=== PATIENT | female | born 1945 | race Hispanic/Latino ===

== ENCOUNTER 2018-08-03 23:00 | Emergency (ER) | payer MEDICARE ==
[2018-08-03] MEDS ORDERED: DIAZEPAM 2 MG TAB ONE (23:29)
== END 2018-08-04 01:17 | disposition home or self-care (01) ==
LOC: EDH 23:00
DX: I10 Essential (primary) hypertension (principal); F41.1 Generalized anxiety disorder; F43.0 Acute stress reaction; E11.9 Type 2 diabetes mellitus without complications; Z90.710 Acquired absence of both cervix and uterus; Z98.890 Other specified postprocedural states
CPT/HCPCS: 93005

== ENCOUNTER → 2018-12-25 | Outpatient (CLI) | payer MEDICARE ==
[~2018-12-25] MED LIST: BIMA12.5OS OU; BRIM5DRO OU; CHOL500050 PO; GLIM4TAB3 PO; LISI10TA7 PO; METO25TA6 PO; NEOM7.5D3 OU; POLY30DR OU
== END | disposition home or self-care (01) ==
LOC: RAH 09:55
PROVIDERS: ATTEND Family Medicine
DX: R92.2 Inconclusive mammogram (principal); E11.42 Type 2 diabetes mellitus with diabetic polyneuropathy; E78.2 Mixed hyperlipidemia; I10 Essential (primary) hypertension; M17.12 Unilateral primary osteoarthritis, left knee; M25.572 Pain in left ankle and joints of left foot; Z85.3 Personal history of malignant neoplasm of breast
CPT/HCPCS: 77066

== ENCOUNTER 2019-11-23 18:56 | Emergency (ER) | payer MEDICARE ==
[~2019-11-23 18:56] MED LIST changes: -GLIM4TAB3 PO; +GLIM4TAB36 PO
[2019-11-23] MEDS ORDERED: ASPIRIN 325 MG TABLET ONE (19:20)
[2019-11-23] MEDS ORDERED: LABETALOL 20 MG/4 ML DISP.SYRIN IV ONE (19:20)
[2019-11-23] MEDS ORDERED: LORAZEPAM 2 MG/ML 1 ML VIAL ONE (19:21)
[2019-11-23 19:26] LABS: BASOPHILS % (AUTO) 0.5 % (0.0-5.0); EOSINOPHILS % (AUTO) 2.6 % (0.0-8.0); HEMATOCRIT 45.4 % (36-48); LYMPHOCYTES % (AUTO) 37.1 % (21.0-51.0); MEAN CORPUSCULAR HGB CONC 33.3 g/dL (32.0-36.0); MEAN CORPUSCULAR VOLUME 87.1 fL (79-99); MONOCYTES % (AUTO) 8.2 % (3.0-13.0); NEUTROPHILS % (AUTO) 51.3 % (40.0-77.0); PLATELET COUNT (AUTO) 251 K/uL (130-400); RED BLOOD CELL COUNT(AUTO) 5.21 MIL/uL (4.00-5.50); RED CELL DISTRIBUTION WIDTH 12.6 % (11.0-15.5)
[2019-11-23 19:53] LABS: INR 0.89 (0.85-1.15); PARTIAL THROMBOPLASTIN TIME 24.5 SEC (26.3-35.5); PROTHROMBIN TIME 9.7 SEC (9.6-11.6)
[2019-11-23 19:56] LABS: CREATININE 1.1 mg/dL (0.5-1.5); POTASSIUM 3.9 mmol/L (3.5-5.1)
[2019-11-23 20:00] LABS: ALBUMIN 3.8 g/dL (3.5-5.0); BILIRUBIN,TOTAL 0.3 mg/dL (0.2-1.0); TOTAL PROTEIN, SERUM 7.9 g/dL (6.0-8.3)
== END 2019-11-23 20:31 | disposition home or self-care (01) ==
LOC: EDH 18:56
DX: R07.89 Other chest pain (principal); I10 Essential (primary) hypertension; E11.9 Type 2 diabetes mellitus without complications
CPT/HCPCS: 36415; 71045; 80053; 82550; 84484; 85025; 85610; 85730; 93005; 96374; 96375; 99285; J2060

== ENCOUNTER 2020-07-03 16:30 | Inpatient (IN) | payer MEDICARE ==
[~2020-07-03] VITALS: Ht 162.6 cm; Wt 93.5 kg
[~2020-07-03 16:30] MED LIST changes: +ALBUMIN (HUMAN) 25% 50 ML IV ONE; +AMINOCAPROIC ACID 5,000MG VIAL IV ONE; +CACL 1GM SYG IVP ONE; +HEPARIN 10,000 UNIT/10ML (1,000 UNIT/ML) VIAL IV ONE; +LISI10TA24 PO; -LISI10TA7 PO; +MAGNESIUM SULFATE 1 GM/2 ML VIAL IM ONE; +MANNITOL 25% 50ML VIAL IV ONE; +PHENYLEPHRINE HCL 10 MG/ML 1ML VIAL IV ONE; +SODIUM BICARB 8.4% 50ML SYRINGE IVP ONE
[2020-07-03] MEDS ORDERED: FAMOTIDINE 20MG VIAL IV ONE (17:05)
[2020-07-03] MEDS ORDERED: MAGNESIUM HYDROXIDE 30 ML/UDCUP ONE (17:06)
[2020-07-03] MEDS ORDERED: LIDOCAINE HCL 2% VISCOUS 15 ML UDCUP ONE (17:06)
[2020-07-03 17:28] LABS: BASOPHILS % (AUTO) 0.4 % (0.0-5.0); EOSINOPHILS % (AUTO) 0.4 % (0.0-8.0); LYMPHOCYTES % (AUTO) 8.5 % (21.0-51.0); MEAN CORPUSCULAR HEMOGLOBIN 29.3 pg (27.0-33.0); MEAN CORPUSCULAR HGB CONC 33.9 g/dL (32.0-36.0); MEAN CORPUSCULAR VOLUME 86.3 fL (79-99); MONOCYTES % (AUTO) 7.2 % (3.0-13.0); NEUTROPHILS % (AUTO) 83.3 % (40.0-77.0); PLATELET COUNT (AUTO) 248 K/uL (130-400); RED BLOOD CELL COUNT(AUTO) 5.33 MIL/uL (4.00-5.50); RED CELL DISTRIBUTION WIDTH 12.3 % (11.0-15.5); WHITE BLOOD COUNT (AUTO) 11.3 K/uL (4.8-10.8)
[2020-07-03 17:37] LABS: CREATININE 1.1 mg/dL (0.5-1.5)
[2020-07-03 17:43] LABS: ALBUMIN 3.8 g/dL (3.5-5.0); BILIRUBIN,TOTAL 0.5 mg/dL (0.2-1.0); TOTAL PROTEIN, SERUM 7.8 g/dL (6.0-8.3)
[2020-07-03 17:43] LABS: APPEARANCE,URINE Clear (CLEAR); BILIRUBIN,URINE Negative (NEGATIVE); COLOR,URINE Yellow (YELLOW); GLUCOSE, URINE (UA) 500 mg/dL (NEGATIVE); KETONES,URINE 15 mg/dL (NEGATIVE); LEUKOCYTE ESTERASE ,URINE Negative (NEGATIVE); NITRATE,URINE Negative (NEGATIVE); OCCULT BLOOD,URINE Small (NEGATIVE); PROTEIN,URINE Negative (NEGATIVE)
[2020-07-03 18:53] LABS: BACTERIA,URINE Rare /HPF (None Seen); SQUAMOUS EPITHELIAL CELL,UR Few /HPF (0-2); WBC,URINE 0-1 /HPF (0-1)
[2020-07-03] MEDS: 0.9%NACL 1000ML 1,000 ML IV SCH (19:45)
[2020-07-03] MEDS ORDERED: MORPHINE 2 MG SYG IVP PRN (19:45)
[2020-07-03] MEDS ORDERED: ACETAMINOPHEN 325 MG TAB PO PRN ×2 (19:45)
[2020-07-03] MEDS: NITROGLYCERIN 1GM OINT 1 INCH/1GM TD SCH (19:45)
[2020-07-03] MEDS ORDERED: ONDANSETRON 4MG INJ IV PRN (19:45)
[2020-07-03] MEDS ORDERED: ASPIRIN 325 MG TABLET ONE (19:46)
[2020-07-03] MEDS ORDERED: GLUCAGON 1MG KIT 1 MG ML IM PRN (20:00)
[2020-07-03] MEDS ORDERED: DEXTROSE 50%-WATER 50 ML DISP.SYRIN IV PRN (20:00)
[2020-07-03] MEDS ORDERED: NITROGLYCERIN 1GM OINT 1 INCH/1GM TD ONE (20:44)
[2020-07-03] MEDS ORDERED: 0.9%NACL 1000ML 1,000 ML IV ONE (20:45)
[2020-07-03] MEDS: INSULIN HUMULIN R 100 UNIT/ML 3ML SQ SCH (21:00)
[2020-07-03] MEDS ORDERED: FAMOTIDINE 20MG VIAL IV SCH (21:00)
[2020-07-03] MEDS ORDERED: ATORVASTATIN 40 MG TABLET ONE (21:15)
[2020-07-03] MEDS ORDERED: METOPROLOL SUCCINATE 50 MG TAB.SR.24H PO ONE (21:15)
[2020-07-03] MEDS: AZITHROMYCIN 500MG+NS 250ML 250 ML IV SCH (23:00)
[2020-07-03] MEDS: CEFTRIAXONE 1G VIAL IVP SCH (23:00)
[2020-07-03] MEDS ORDERED: CARB-242 OU (23:18)
[2020-07-03] MEDS ORDERED: OLME20TA22 PO (23:18)
[2020-07-03] MEDS ORDERED: AMLO2.5T4 PO (23:18)
[2020-07-03] MEDS ORDERED: GLIP1TAB6 PO (23:18)
[2020-07-03] MEDS ORDERED: ERGO500093 PO (23:18)
[2020-07-04] VITALS (21 sets, daily range): BP systolic 102–158; BP diastolic 35–69
[2020-07-04] MEDS ORDERED: CEFTRIAXONE 1G VIAL ONE (01:12)
[2020-07-04] MEDS ORDERED: AZITHROMYCIN 500MG+NS 250ML 250 ML IV ONE (01:12)
[2020-07-04] MEDS: NITROGLYCERIN 1GM OINT 1 INCH/1GM TD SCH ×2 (03:45→11:45)
[2020-07-04 05:52] LABS: BASOPHILS % (AUTO) 0.5 % (0.0-5.0); EOSINOPHILS % (AUTO) 0.3 % (0.0-8.0); HEMATOCRIT 44.1 % (36-48); LYMPHOCYTES % (AUTO) 13.1 % (21.0-51.0); MEAN CORPUSCULAR HEMOGLOBIN 28.5 pg (27.0-33.0); MEAN CORPUSCULAR HGB CONC 33.6 g/dL (32.0-36.0); MONOCYTES % (AUTO) 9.8 % (3.0-13.0); PLATELET COUNT (AUTO) 239 K/uL (130-400); RED BLOOD CELL COUNT(AUTO) 5.19 MIL/uL (4.00-5.50); RED CELL DISTRIBUTION WIDTH 12.4 % (11.0-15.5); WHITE BLOOD COUNT (AUTO) 9.9 K/uL (4.8-10.8)
[2020-07-04 07:04] LABS: TROPONIN I 2.9 ng/mL (0.00-0.06)
[2020-07-04 07:29] LABS: BILIRUBIN,TOTAL 0.8 mg/dL (0.2-1.0); CREATININE 0.9 mg/dL (0.5-1.5); THYROID STIMULATING HORMONE 1.48 uIU/mL (0.36-3.74); TOTAL PROTEIN, SERUM 6.7 g/dL (6.0-8.3)
[2020-07-04] MEDS: INSULIN HUMULIN R 100 UNIT/ML 3ML SQ SCH ×2 (07:30→11:30)
[2020-07-04] MEDS ORDERED: CLOPIDOGREL 300MG TAB ONE (08:58)
[2020-07-04] MEDS ORDERED: ENOXAPARIN SODIUM 80 MG/0.8 ML SQ SCH (09:00)
[2020-07-04] MEDS ORDERED: ASPIRIN 81 MG EC TAB PO SCH ×2 (09:00)
[2020-07-04] MEDS ORDERED: METOPROLOL TARTRATE 25 MG TAB PO SCH (09:00)
[2020-07-04] MEDS ORDERED: ENOXAPARIN SODIUM 30 MG/0.3 ML SQ SCH (09:00)
[2020-07-04] MEDS: 0.9%NACL 1000ML 1,000 ML IV SCH (09:05)
[2020-07-04] MEDS ORDERED: CLOPIDOGREL 300MG TAB PO SCH (09:15)
[2020-07-04] MEDS ORDERED: NICARDIPINE 25MG INJ IV ONE (09:45)
[2020-07-04] MEDS ORDERED: IOHEXOL 350 MG/ML 100ML INFUS..BTL IV ONE (09:45)
[2020-07-04] MEDS ORDERED: HEPARIN 10,000 UNIT/10ML (1,000 UNIT/ML) VIAL ONE ×3 (09:45→13:11)
[2020-07-04] MEDS ORDERED: IOHEXOL-350 50ML VIAL IV ONE (09:45)
[2020-07-04] MEDS ORDERED: NITROGLYCERIN 2 MG VIAL IV ONE (09:45)
[2020-07-04] MEDS ORDERED: LIDOCAINE HCL 400MG/20ML VIAL ONE ×3 (09:46→11:26)
[2020-07-04] MEDS ORDERED: MIDAZOLAM HCL 1 MG/ML 2ML VIAL ONE (09:46)
[2020-07-04] MEDS ORDERED: FENTANYL CITRATE PF 50 MCG/1 ML 2ML VIAL ONE (09:46)
[2020-07-04] MEDS ORDERED: HEPARIN 25,000 UNITS/250ML D5W 250 ML IV ONE (10:51)
[2020-07-04] MEDS: CEFTRIAXONE 1G VIAL IVP SCH ×2 (11:00→22:28)
[2020-07-04] MEDS ORDERED: ESMOLOL HCL 10 MG/ML 10 ML VIAL ONE ×2 (11:38→11:40)
[2020-07-04] MEDS ORDERED: PROTAMINE SULFATE 10 MG/ML 25ML VIAL IV ONE (11:38)
[2020-07-04] MEDS ORDERED: LIDOCAINE PF 100MG/5ML (2%) SYRINGE 5ML ONE (11:38)
[2020-07-04] MEDS ORDERED: FENTANYL CITRATE PF 50 MCG/1 ML 20ML VIAL IJ ONE (11:39)
[2020-07-04] MEDS ORDERED: SODIUM BICARB 50MEQ 50ML VIAL 150 ML ONE ×2 (11:39→13:17)
[2020-07-04] MEDS ORDERED: ETOMIDATE 20MG VIAL ONE (11:39)
[2020-07-04] MEDS ORDERED: NOREPINEPHRINE BITARTRATE 1 MG/1 ML ML IV ONE (11:39)
[2020-07-04] MEDS ORDERED: ROCURONIUM 10MG/1ML SYR 10 MG/ML ML ONE ×2 (11:39→14:11)
[2020-07-04] MEDS ORDERED: PROPOFOL 10 MG/ML 20ML VIAL IV ONE (11:39)
[2020-07-04] MEDS ORDERED: AMINOCAPROIC ACID 5,000MG VIAL ONE (11:39)
[2020-07-04] MEDS ORDERED: EPINEPHRINE PF 1MG AMP ONE (11:39)
[2020-07-04] MEDS ORDERED: AMIODARONE 150MG VIAL ONE ×2 (11:40→14:55)
[2020-07-04] MEDS ORDERED: VASOPRESSIN 20 UNITS/ML 1ML VIAL ONE (11:41)
[2020-07-04] MEDS ORDERED: CEFAZOLIN SODIUM 1 GM VIAL ONE ×2 (11:42→12:54)
[2020-07-04] MEDS ORDERED: PAPAVERINE HCL 30 MG/ML 2ML VIAL ONE (11:43)
[2020-07-04] MEDS ORDERED: CEFAZOLIN SODIUM 1 GM VIAL IVP PRN ×2 (11:45→12:00)
[2020-07-04] MEDS ORDERED: NITROGLYCERIN 50MG/D5W 250ML 1 BOT ONE (12:17)
[2020-07-04 12:36] LABS: MEAN CORPUSCULAR HEMOGLOBIN 29.1 pg (27.0-33.0); MEAN CORPUSCULAR HGB CONC 33.9 g/dL (32.0-36.0); MEAN CORPUSCULAR VOLUME 85.8 fL (79-99); RED BLOOD CELL COUNT(AUTO) 4.78 MIL/uL (4.00-5.50); RED CELL DISTRIBUTION WIDTH 12.5 % (11.0-15.5); WHITE BLOOD COUNT (AUTO) 13.1 K/uL (4.8-10.8)
[2020-07-04] MEDS ORDERED: SUCCINYLCHOLINE CHLORIDE 20 MG/ML 10 ML VIAL ONE (12:37)
[2020-07-04 12:52] LABS: INR 1.11 (0.85-1.15); PROTHROMBIN TIME 11.8 SEC (9.6-11.6)
[2020-07-04 12:57] LABS: HEMOGLOBIN A1C 7.1 % (4.0-6.0)
[2020-07-04 12:59] LABS: ALBUMIN 2.7 g/dL (3.5-5.0); BILIRUBIN,TOTAL 0.7 mg/dL (0.2-1.0); CREATININE 0.8 mg/dL (0.5-1.5); POTASSIUM 3.9 mmol/L (3.5-5.1)
[2020-07-04 13:04] LABS: ABG BASE EXCESS -7.6 mmol/L (-2.0-3.0); ABG HCO3 17.1 mmol/L (21.0-28.0); ABG OXYGEN SATURATION 98.9 % (95.0-99.0); ABG PCO2 33 mmHg (32-45)
[2020-07-04 13:09] LABS: PARTIAL THROMBOPLASTIN TIME > 139.0 SEC (26.3-35.5)
[2020-07-04] MEDS ORDERED: POTASSIUM CHLORIDE 20MEQ/100ML 200 ML IV ONE (13:11)
[2020-07-04 13:25] LABS: ABG BASE EXCESS 2.5 mmol/L (-2.0-3.0); ABG HCO3 25.7 mmol/L (21.0-28.0); ABG OXYGEN SATURATION 98.6 % (95.0-99.0); ABG PCO2 35 mmHg (32-45)
[2020-07-04] MEDS ORDERED: LIDOCAINE 2G/250ML 250 ML IV ONE (13:53)
[2020-07-04 14:01] LABS: ABG BASE EXCESS -2.4 mmol/L (-2.0-3.0); ABG HCO3 20.5 mmol/L (21.0-28.0); ABG OXYGEN SATURATION 98.2 % (95.0-99.0); ABG PCO2 27 mmHg (32-45)
[2020-07-04 14:22] LABS: ABG BASE EXCESS 0.4 mmol/L (-2.0-3.0); ABG HCO3 23.5 mmol/L (21.0-28.0); ABG OXYGEN SATURATION 98.2 % (95.0-99.0); ABG PCO2 31 mmHg (32-45)
[2020-07-04] MEDS ORDERED: INSULIN HUMULIN R 100 UNIT/ML 3ML ONE (14:26)
[2020-07-04] MEDS ORDERED: 0.9%NACL 1000ML 1,000 ML IV ONE (14:52)
[2020-07-04 15:03] LABS: ABG HCO3 20.7 mmol/L (21.0-28.0); ABG OXYGEN SATURATION 98.3 % (95.0-99.0); ABG PCO2 32 mmHg (32-45)
[2020-07-04] MEDS ORDERED: PROPOFOL 1000 MG/100 ML 100 ML IV PRN (15:30)
[2020-07-04] MEDS ORDERED: TRAMADOL HCL 50 MG TABLET PO PRN ×2 (15:30)
[2020-07-04] MEDS ORDERED: MAGNESIUM 2GM PREMIX 50ML 50 ML IV PRN (15:30)
[2020-07-04] MEDS ORDERED: 0.9%NACL 1000ML 1,000 ML IV SCH (15:30)
[2020-07-04] MEDS ORDERED: MORPHINE 2 MG SYG IV PRN ×2 (15:30→15:45)
[2020-07-04] MEDS ORDERED: EPINEPHRINE PF 1MG AMP 10 MG in DEXTROSE 5%-WATER 250 ML IV PRN (15:30)
[2020-07-04] MEDS ORDERED: POTASSIUM PHOS 15 mMOL+NS250ML 250 ML IV PRN (15:30)
[2020-07-04] MEDS ORDERED: AMINOCAPROIC ACID 5,000MG VIAL 15,000 MG in 0.9% NACL 250ML 250 ML IV SCH (15:30)
[2020-07-04] MEDS ORDERED: DEXTROSE 50%-WATER 50 ML DISP.SYRIN IV PRN (15:30)
[2020-07-04] MEDS ORDERED: ALBUMIN (HUMAN) 5% 250 ML IV PRN (15:30)
[2020-07-04] MEDS ORDERED: ONDANSETRON 4MG INJ IV PRN (15:30)
[2020-07-04] MEDS ORDERED: NOREPINEPHRIN 4MG/NS 250ML 250 ML IV PRN (15:30)
[2020-07-04] MEDS ORDERED: NITROGLYCERIN 50MG/D5W 250ML 250 BOT IV SCH (15:30)
[2020-07-04] MEDS ORDERED: 0.9% NACL 500ML IV.SOLN 500 ML IV SCH (15:30)
[2020-07-04] MEDS ORDERED: ACETAMINOPHEN 650 MG SUPPOSITORY RC PRN (15:30)
[2020-07-04] MEDS ORDERED: INSULIN REGULAR, HUMAN 3ML 100 UNIT in 0.9%NACL 100ML 99 ML IV SCH ×2 (15:30)
[2020-07-04] MEDS ORDERED: GLUCAGON 1MG KIT 1 MG ML IM PRN (15:30)
[2020-07-04 15:32] LABS: ABG BASE EXCESS -1.1 mmol/L (-2.0-3.0); ABG HCO3 22.9 mmol/L (21.0-28.0); ABG OXYGEN SATURATION 98.3 % (95.0-99.0); ABG PCO2 35 mmHg (32-45)
[2020-07-04] MEDS ORDERED: POTASSIUM CHLORIDE 20MEQ/100ML 100 ML IV ONE (15:36)
[2020-07-04 16:55] LABS: ABG HCO3 21.7 mmol/L (21.0-28.0); ABG OXYGEN SATURATION 96.5 % (95.0-99.0); ABG PCO2 30 mmHg (32-45)
[2020-07-04] MEDS: POTASSIUM CHLORIDE 20MEQ/100ML 100 ML IV PRN ×3 (16:58→21:29)
[2020-07-04] MEDS: SODIUM BICARB 50MEQ 50ML VIAL IV PRN ×4 (16:58→23:54)
[2020-07-04 17:01] LABS: HEMATOCRIT 30.2 % (36-48); MEAN CORPUSCULAR HEMOGLOBIN 29.1 pg (27.0-33.0); MEAN CORPUSCULAR HGB CONC 33.8 g/dL (32.0-36.0); MEAN CORPUSCULAR VOLUME 86.3 fL (79-99); RED BLOOD CELL COUNT(AUTO) 3.5 MIL/uL (4.00-5.50); WHITE BLOOD COUNT (AUTO) 15.9 K/uL (4.8-10.8)
[2020-07-04 17:23] LABS: INR 1.42 (0.85-1.15); PROTHROMBIN TIME 14.7 SEC (9.6-11.6)
[2020-07-04 17:24] LABS: CREATININE 1.2 mg/dL (0.5-1.5); MAGNESIUM 2.2 mg/dL (1.80-2.40); PHOSPHORUS 2.3 mg/dL (2.5-4.9); POTASSIUM 3.1 mmol/L (3.5-5.1)
[2020-07-04 17:25] LABS: PARTIAL THROMBOPLASTIN TIME 28.8 SEC (26.3-35.5)
[2020-07-04 18:31] LABS: ABG BASE EXCESS 0.1 mmol/L (-2.0-3.0); ABG HCO3 20.9 mmol/L (21.0-28.0); ABG OXYGEN SATURATION 98.2 % (95.0-99.0); ABG PCO2 23 mmHg (32-45)
[2020-07-04] MEDS ORDERED: DEXTROSE 5%-WATER 1,000 ML IV ONE (19:22)
[2020-07-04] MEDS ORDERED: PHARMACY COMMUNICATION MISC SCH ×2 (19:30→20:15)
[2020-07-04] MEDS ORDERED: LIDOCAINE 2G/250ML 250 ML IV SCH (19:45)
[2020-07-04] MEDS: FAMOTIDINE 20MG VIAL IV SCH (19:57)
[2020-07-04] MEDS: CEFAZOLIN SODIUM 1 GM VIAL IV SCH (19:57)
[2020-07-04] MEDS: ATORVASTATIN 40 MG TABLET PO SCH (19:58)
[2020-07-04 20:34] LABS: ABG BASE EXCESS 0.8 mmol/L (-2.0-3.0); ABG HCO3 23.1 mmol/L (21.0-28.0); ABG OXYGEN SATURATION 97.4 % (95.0-99.0); ABG PCO2 30 mmHg (32-45)
[2020-07-04 22:04] LABS: ABG BASE EXCESS -0.4 mmol/L (-2.0-3.0); ABG OXYGEN SATURATION 96.7 % (95.0-99.0); ABG PCO2 33 mmHg (32-45)
[2020-07-04] MEDS: AZITHROMYCIN 500MG+NS 250ML 250 ML IV SCH (23:23)
[2020-07-04 23:38] LABS: ABG BASE EXCESS -4.6 mmol/L (-2.0-3.0); ABG HCO3 18.2 mmol/L (21.0-28.0); ABG OXYGEN SATURATION 96.5 % (95.0-99.0); ABG PCO2 26 mmHg (32-45)
[2020-07-05] VITALS (101 sets, daily range): BP systolic 108–217; BP diastolic 45–89
[2020-07-05 01:14] LABS: ABG BASE EXCESS 5.1 mmol/L (-2.0-3.0); ABG PCO2 34 mmHg (32-45)
[2020-07-05] MEDS: POTASSIUM CHLORIDE 20MEQ/100ML 100 ML IV PRN ×2 (01:26→02:39)
[2020-07-05 03:25] LABS: ABG BASE EXCESS -1.4 mmol/L (-2.0-3.0); ABG HCO3 20.7 mmol/L (21.0-28.0); ABG OXYGEN SATURATION 96.3 % (95.0-99.0); ABG PCO2 26 mmHg (32-45)
[2020-07-05] MEDS: SODIUM BICARB 50MEQ 50ML VIAL IV PRN ×2 (03:33→03:36)
[2020-07-05] MEDS: CEFAZOLIN SODIUM 1 GM VIAL IV SCH ×2 (04:07→12:30)
[2020-07-05 05:03] LABS: HEMATOCRIT 25.7 % (36-48); INR 1.29 (0.85-1.15); MEAN CORPUSCULAR HGB CONC 34.2 g/dL (32.0-36.0); MEAN CORPUSCULAR VOLUME 84.8 fL (79-99); PROTHROMBIN TIME 13.5 SEC (9.6-11.6); RED BLOOD CELL COUNT(AUTO) 3.03 MIL/uL (4.00-5.50); RED CELL DISTRIBUTION WIDTH 13.2 % (11.0-15.5); WHITE BLOOD COUNT (AUTO) 12.6 K/uL (4.8-10.8)
[2020-07-05 05:04] LABS: PARTIAL THROMBOPLASTIN TIME 33.2 SEC (26.3-35.5)
[2020-07-05 05:16] LABS: ABG BASE EXCESS 7.6 mmol/L (-2.0-3.0); ABG HCO3 30.8 mmol/L (21.0-28.0); ABG OXYGEN SATURATION 95.8 % (95.0-99.0); ABG PCO2 38 mmHg (32-45)
[2020-07-05] MEDS: CALCIUM GLUC 1GM 1 GM in 0.9%NACL 50ML 50 ML IV PRN ×2 (05:20→18:33)
[2020-07-05 05:33] LABS: MAGNESIUM 2.2 mg/dL (1.80-2.40); PHOSPHORUS 2.3 mg/dL (2.5-4.9); POTASSIUM 4.6 mmol/L (3.5-5.1)
[2020-07-05] MEDS ORDERED: ALBUMIN (HUMAN) 5% 250 ML IV ONE ×2 (06:42)
[2020-07-05] MEDS ORDERED: ALBUMIN (HUMAN) 5% 500 ML IV SCH (06:45)
[2020-07-05] MEDS ORDERED: DEXTROSE 5%-WATER 1,000 ML IV ONE (07:24)
[2020-07-05] MEDS: DEXTROSE 5%-WATER 1,000 ML IV SCH ×2 (08:06→19:24)
[2020-07-05 08:10] LABS: ABG BASE EXCESS 6.3 mmol/L (-2.0-3.0); ABG HCO3 30.1 mmol/L (21.0-28.0); ABG OXYGEN SATURATION 94.2 % (95.0-99.0); ABG PCO2 40 mmHg (32-45)
[2020-07-05] MEDS: FUROSEMIDE 20MG VIAL IV SCH ×2 (09:00→20:35)
[2020-07-05] MEDS: ASPIRIN 325MG EC TAB PO SCH (09:00)
[2020-07-05] MEDS ORDERED: LORAZEPAM 2 MG/ML 1 ML VIAL IVP PRN (09:30)
[2020-07-05 09:53] LABS: ABG BASE EXCESS 5.5 mmol/L (-2.0-3.0); ABG HCO3 29.4 mmol/L (21.0-28.0); ABG OXYGEN SATURATION 95.8 % (95.0-99.0); ABG PCO2 40 mmHg (32-45)
[2020-07-05] MEDS ORDERED: PHARMACY COMMUNICATION MISC SCH ×2 (10:00→15:00)
[2020-07-05] MEDS: CEFTRIAXONE 1G VIAL IVP SCH ×2 (10:18→23:03)
[2020-07-05] MEDS: FAMOTIDINE 20MG VIAL IV SCH ×2 (10:18→20:39)
[2020-07-05 10:52] LABS: HEMATOCRIT 24.5 % (36-48); MEAN CORPUSCULAR HEMOGLOBIN 29.4 pg (27.0-33.0); MEAN CORPUSCULAR HGB CONC 34.3 g/dL (32.0-36.0); MEAN CORPUSCULAR VOLUME 85.7 fL (79-99); NUCLEATED RED BLOOD CELLS 0.1 % (0.0-0.19); RED BLOOD CELL COUNT(AUTO) 2.86 MIL/uL (4.00-5.50); RED CELL DISTRIBUTION WIDTH 13.8 % (11.0-15.5); WHITE BLOOD COUNT (AUTO) 14.5 K/uL (4.8-10.8)
[2020-07-05 11:10] LABS: CREATININE 2.2 mg/dL (0.5-1.5); POTASSIUM 3.8 mmol/L (3.5-5.1)
[2020-07-05] MEDS ORDERED: COMPOUND IV MISC 1 EACH IVSOLN MISC PRN (12:15)
[2020-07-05] MEDS: LEVETIRACETAM 500 MG in 0.9%NACL 100ML 100 ML IV SCH (12:39)
[2020-07-05] MEDS: FUROSEMIDE IVP SCH (16:10)
[2020-07-05] MEDS: MANNITOL 20% IVP SCH (16:10)
[2020-07-05 18:30] LABS: ABG BASE EXCESS 7.4 mmol/L (-2.0-3.0); ABG HCO3 30.8 mmol/L (21.0-28.0); ABG OXYGEN SATURATION 95.1 % (95.0-99.0); ABG PCO2 38 mmHg (32-45)
[2020-07-05] MEDS: ATORVASTATIN 40 MG TABLET PO SCH (20:39)
[2020-07-05] MEDS: AZITHROMYCIN 500MG+NS 250ML 250 ML IV SCH (23:03)
[2020-07-05] MEDS: NOREPINEPHRINE BITARTRATE 8 MG/NS 250ML IV SCH ×2 (23:37)
[2020-07-06] VITALS (61 sets, daily range): BP systolic 106–189; BP diastolic 38–94
[2020-07-06] MEDS: LEVETIRACETAM 500 MG in 0.9%NACL 100ML 100 ML IV SCH ×2 (01:06→14:13)
[2020-07-06 03:31] LABS: BASOPHILS % (AUTO) 0.2 % (0.0-5.0); HEMATOCRIT 23.6 % (36-48); LYMPHOCYTES % (AUTO) 9.8 % (21.0-51.0); MEAN CORPUSCULAR HGB CONC 33.1 g/dL (32.0-36.0); MEAN CORPUSCULAR VOLUME 87.7 fL (79-99); MONOCYTES % (AUTO) 9.1 % (3.0-13.0); NEUTROPHILS % (AUTO) 80.3 % (40.0-77.0); NUCLEATED RED BLOOD CELLS 0.2 % (0.0-0.19); PLATELET COUNT (AUTO) 92 K/uL (130-400); RED BLOOD CELL COUNT(AUTO) 2.69 MIL/uL (4.00-5.50); RED CELL DISTRIBUTION WIDTH 14.3 % (11.0-15.5); WHITE BLOOD COUNT (AUTO) 17.7 K/uL (4.8-10.8)
[2020-07-06 03:42] LABS: CREATININE 2.4 mg/dL (0.5-1.5); POTASSIUM 3.7 mmol/L (3.5-5.1)
[2020-07-06 04:25] LABS: ABG BASE EXCESS 8.8 mmol/L (-2.0-3.0); ABG HCO3 32.2 mmol/L (21.0-28.0); ABG OXYGEN SATURATION 94.9 % (95.0-99.0); ABG PCO2 40 mmHg (32-45)
[2020-07-06] MEDS: METOPROLOL TARTRATE 25 MG TAB PO SCH ×2 (09:00→21:00)
[2020-07-06] MEDS ORDERED: PHARMACY COMMUNICATION MISC SCH (09:15)
[2020-07-06] MEDS: ASPIRIN 325MG EC TAB PO SCH (09:27)
[2020-07-06] MEDS: FAMOTIDINE 20MG VIAL IV SCH ×2 (09:27→21:01)
[2020-07-06] MEDS ORDERED: FOSPHENYTOIN SODIUM IJ SCH (10:00)
[2020-07-06] MEDS ORDERED: COMPOUND IV MISC 1 EACH IVSOLN MISC PRN (10:00)
[2020-07-06] MEDS ORDERED: [UNRECOGNIZED DRUG - OTHER] IJ SCH (10:00)
[2020-07-06] MEDS: CEFTRIAXONE 1G VIAL IVP SCH ×2 (11:27→23:08)
[2020-07-06 13:57] LABS: CREATININE 2.7 mg/dL (0.5-1.5); POTASSIUM 3.7 mmol/L (3.5-5.1)
[2020-07-06] MEDS ORDERED: DEXAMETHASONE SOD PHOSPHATE 4 MG/ML 1ML VIAL ONE (14:50)
[2020-07-06] MEDS ORDERED: DEXAMETHASONE SOD PHOSPHATE 4 MG/ML 1ML VIAL IVP SCH (15:50)
[2020-07-06] MEDS ORDERED: FUROSEMIDE 20 MG TABLET PO SCH (17:00)
[2020-07-06] MEDS ORDERED: AMIODARONE 150MG VIAL 150 MG in DEXTROSE 5%-WATER 100 ML IV SCH (17:45)
[2020-07-06] MEDS: DEXAMETHASONE SOD PHOSPHATE 4 MG/ML 1ML VIAL IVP SCH (17:50)
[2020-07-06] MEDS: DEXTROSE 5%-WATER 1,000 ML IV SCH (17:50)
[2020-07-06] MEDS ORDERED: AMIODARONE 900MG VIAL 360 MG in DEXTROSE 5%-WATER 200 ML IV SCH (18:00)
[2020-07-06] MEDS: MANNITOL 20% IVP SCH (20:42)
[2020-07-06] MEDS: FUROSEMIDE IVP SCH (20:42)
[2020-07-06] MEDS: ATORVASTATIN 40 MG TABLET PO SCH (21:02)
[2020-07-06] MEDS: FOSPHENYTOIN SODIUM 100 MG in 0.9%NACL 50ML 50 ML IJ SCH (21:44)
[2020-07-06] MEDS: AZITHROMYCIN 500MG+NS 250ML 250 ML IV SCH (23:07)
[2020-07-07] VITALS (29 sets, daily range): BP systolic 116–180; BP diastolic 46–83
[2020-07-07] MEDS ORDERED: AMIODARONE 900MG VIAL 450 MG in DEXTROSE 5%-WATER 250 ML IV SCH ×2
[2020-07-07] MEDS: LEVETIRACETAM 500 MG in 0.9%NACL 100ML 100 ML IV SCH ×2 (00:09→12:12)
[2020-07-07] MEDS: NOREPINEPHRINE BITARTRATE 8 MG/NS 250ML IV SCH ×2 (00:18)
[2020-07-07 03:57] LABS: HEMATOCRIT 22.4 % (36-48); MEAN CORPUSCULAR HEMOGLOBIN 29.4 pg (27.0-33.0); MEAN CORPUSCULAR HGB CONC 32.6 g/dL (32.0-36.0); MEAN CORPUSCULAR VOLUME 90.3 fL (79-99); NUCLEATED RED BLOOD CELLS 0.8 % (0.0-0.19); RED BLOOD CELL COUNT(AUTO) 2.48 MIL/uL (4.00-5.50); RED CELL DISTRIBUTION WIDTH 14.6 % (11.0-15.5); WHITE BLOOD COUNT (AUTO) 17.9 K/uL (4.8-10.8)
[2020-07-07] MEDS: DEXTROSE 5%-WATER 1,000 ML IV SCH (04:16)
[2020-07-07 04:23] LABS: CREATININE 2.9 mg/dL (0.5-1.5); POTASSIUM 4.1 mmol/L (3.5-5.1)
[2020-07-07] MEDS: ACETAMINOPHEN 325 MG TAB PO PRN (04:41)
[2020-07-07] MEDS: DEXAMETHASONE SOD PHOSPHATE 4 MG/ML 1ML VIAL IVP SCH ×5 (06:11→23:18)
[2020-07-07] MEDS: ASPIRIN 325MG EC TAB PO SCH (09:47)
[2020-07-07] MEDS: FAMOTIDINE 20MG VIAL IV SCH ×2 (09:47→23:21)
[2020-07-07] MEDS: METOPROLOL TARTRATE 25 MG TAB PO SCH ×2 (09:47→23:20)
[2020-07-07] MEDS: FOSPHENYTOIN SODIUM 100 MG in 0.9%NACL 50ML 50 ML IJ SCH ×2 (09:48→23:20)
[2020-07-07] MEDS: INSULIN HUMULIN R 100 UNIT/ML 3ML SQ SCH ×2 (09:52→15:27)
[2020-07-07] MEDS: ENOXAPARIN SODIUM 30 MG/0.3 ML SQ SCH (10:18)
[2020-07-07] MEDS: CEFTRIAXONE 1G VIAL IVP SCH ×2 (10:18→23:18)
[2020-07-07] MEDS ORDERED: AMIODARONE 200 MG TABLET PO ONE ×2 (22:15→23:14)
[2020-07-07] MEDS: ATORVASTATIN 40 MG TABLET PO SCH (23:19)
[2020-07-08] VITALS (28 sets, daily range): BP systolic 98–188; BP diastolic 41–128
[2020-07-08] MEDS: LEVETIRACETAM 500 MG in 0.9%NACL 100ML 100 ML IV SCH ×2 (00:18→11:58)
[2020-07-08] MEDS: INSULIN HUMULIN R 100 UNIT/ML 3ML SQ SCH ×5 (00:30→20:00)
[2020-07-08] MEDS: AZITHROMYCIN 500MG+NS 250ML 250 ML IV SCH ×2 (00:30→22:21)
[2020-07-08] MEDS: DEXTROSE 5%-WATER 1,000 ML IV SCH ×2 (01:40→06:40)
[2020-07-08] MEDS: DEXAMETHASONE SOD PHOSPHATE 4 MG/ML 1ML VIAL IVP SCH ×3 (05:57→18:54)
[2020-07-08 06:11] LABS: BASOPHILS % (AUTO) 0.1 % (0.0-5.0); HEMATOCRIT 22.6 % (36-48); LYMPHOCYTES % (AUTO) 2.8 % (21.0-51.0); MEAN CORPUSCULAR HEMOGLOBIN 29.7 pg (27.0-33.0); MEAN CORPUSCULAR HGB CONC 32.7 g/dL (32.0-36.0); MEAN CORPUSCULAR VOLUME 90.8 fL (79-99); MONOCYTES % (AUTO) 3.4 % (3.0-13.0); NEUTROPHILS % (AUTO) 93.2 % (40.0-77.0); NUCLEATED RED BLOOD CELLS 1.2 % (0.0-0.19); PLATELET COUNT (AUTO) 93 K/uL (130-400); RED BLOOD CELL COUNT(AUTO) 2.49 MIL/uL (4.00-5.50); RED CELL DISTRIBUTION WIDTH 14.2 % (11.0-15.5); WHITE BLOOD COUNT (AUTO) 16.5 K/uL (4.8-10.8)
[2020-07-08 06:22] LABS: CREATININE 2.8 mg/dL (0.5-1.5); MAGNESIUM 2.5 mg/dL (1.80-2.40); POTASSIUM 4.2 mmol/L (3.5-5.1)
[2020-07-08] MEDS: INSULIN GLARGINE 100 UNITS/ML 10 ML VIAL SQ SCH (08:49)
[2020-07-08] MEDS: ASPIRIN 325MG EC TAB PO SCH (09:04)
[2020-07-08] MEDS: FAMOTIDINE 20MG VIAL IV SCH ×2 (09:04→21:19)
[2020-07-08] MEDS: AMIODARONE 200 MG TABLET PO SCH (09:04)
[2020-07-08] MEDS: ENOXAPARIN SODIUM 30 MG/0.3 ML SQ SCH (09:04)
[2020-07-08] MEDS: METOPROLOL TARTRATE 25 MG TAB PO SCH ×2 (09:05→21:19)
[2020-07-08] MEDS: CEFTRIAXONE 1G VIAL IVP SCH ×2 (11:58→23:09)
[2020-07-08] MEDS: FOSPHENYTOIN SODIUM 100 MG in 0.9%NACL 50ML 50 ML IJ SCH ×2 (11:59→22:01)
[2020-07-08] MEDS: ATORVASTATIN 40 MG TABLET PO SCH (21:20)
[2020-07-09] VITALS (30 sets, daily range): BP systolic 84–211; BP diastolic 34–107
[2020-07-09] MEDS: DEXTROSE 5%-WATER 1,000 ML IV SCH ×2 (00:06→11:00)
[2020-07-09] MEDS: LEVETIRACETAM 500 MG in 0.9%NACL 100ML 100 ML IV SCH ×2 (00:14→13:12)
[2020-07-09 04:17] LABS: BASOPHILS % (AUTO) 0.1 % (0.0-5.0); HEMATOCRIT 23.7 % (36-48); LYMPHOCYTES % (AUTO) 4.7 % (21.0-51.0); MEAN CORPUSCULAR HEMOGLOBIN 28.7 pg (27.0-33.0); MEAN CORPUSCULAR HGB CONC 31.6 g/dL (32.0-36.0); MEAN CORPUSCULAR VOLUME 90.8 fL (79-99); MONOCYTES % (AUTO) 5.1 % (3.0-13.0); NEUTROPHILS % (AUTO) 89.4 % (40.0-77.0); NUCLEATED RED BLOOD CELLS 0.3 % (0.0-0.19); PLATELET COUNT (AUTO) 88 K/uL (130-400); RED BLOOD CELL COUNT(AUTO) 2.61 MIL/uL (4.00-5.50); WHITE BLOOD COUNT (AUTO) 16.4 K/uL (4.8-10.8)
[2020-07-09 04:20] LABS: CREATININE 2.3 mg/dL (0.5-1.5); MAGNESIUM 2.3 mg/dL (1.80-2.40); POTASSIUM 3.7 mmol/L (3.5-5.1)
[2020-07-09] MEDS: POTASSIUM CHLORIDE 20MEQ/100ML 100 ML IV PRN (05:25)
[2020-07-09] MEDS: INSULIN HUMULIN R 100 UNIT/ML 3ML SQ SCH ×3 (05:30→18:18)
[2020-07-09] MEDS ORDERED: CALCIUM GLUC 1GM/10ML VIAL IV ONE (06:15)
[2020-07-09] MEDS: CALCIUM GLUC 1GM 1 GM in 0.9%NACL 50ML 50 ML IV PRN (06:17)
[2020-07-09] MEDS ORDERED: 0.9%NACL 100ML 100 ML IV ONE (06:19)
[2020-07-09] MEDS: ENOXAPARIN SODIUM 30 MG/0.3 ML SQ SCH (07:53)
[2020-07-09] MEDS: FAMOTIDINE 20MG VIAL IV SCH ×2 (07:53→20:34)
[2020-07-09] MEDS: METOPROLOL TARTRATE 25 MG TAB PO SCH ×3 (07:53→21:18)
[2020-07-09] MEDS: ASPIRIN 325MG EC TAB PO SCH (07:53)
[2020-07-09] MEDS: AMIODARONE 200 MG TABLET PO SCH ×3 (07:53→21:17)
[2020-07-09] MEDS: INSULIN GLARGINE 100 UNITS/ML 10 ML VIAL SQ SCH (08:03)
[2020-07-09] MEDS: FOSPHENYTOIN SODIUM 100 MG in 0.9%NACL 50ML 50 ML IJ SCH ×2 (08:37→20:45)
[2020-07-09] MEDS: CEFTRIAXONE 1G VIAL IVP SCH ×2 (11:42→23:12)
[2020-07-09] MEDS ORDERED: MANNITOL 25% 50ML VIAL IV SCH (12:42)
[2020-07-09] MEDS ORDERED: PHARMACY COMMUNICATION MISC SCH (12:45)
[2020-07-09] MEDS: MANNITOL 20% IV SCH (13:12)
[2020-07-09] MEDS: FUROSEMIDE IV SCH (13:12)
[2020-07-09 15:01] LABS: ABG BASE EXCESS 5.8 mmol/L (-2.0-3.0); ABG HCO3 28.8 mmol/L (21.0-28.0); ABG OXYGEN SATURATION 98.4 % (95.0-99.0); ABG PCO2 37 mmHg (32-45)
[2020-07-09] MEDS: ARTIFICAL TEARS SOL 15 ML OU SCH ×3 (17:58→23:09)
[2020-07-09] MEDS: LATANOPROST 2.5 ML DROPS OU SCH (20:37)
[2020-07-09] MEDS: TIMOLOL MALEATE 0.5% 5 ML BOTTLE OU SCH (20:41)
[2020-07-09] MEDS: BRIMONIDINE TARTRATE 0.2% 5 ML BOTTLE OU SCH (20:41)
[2020-07-09] MEDS: ATORVASTATIN 40 MG TABLET PO SCH (20:45)
[2020-07-09] MEDS: AZITHROMYCIN 500MG+NS 250ML 250 ML IV SCH (23:15)
[2020-07-10] VITALS (25 sets, daily range): BP systolic 90–149; BP diastolic 39–68
[2020-07-10] MEDS: INSULIN HUMULIN R 100 UNIT/ML 3ML SQ SCH ×4 (00:26→17:55)
[2020-07-10] MEDS: ARTIFICAL TEARS SOL 15 ML OU SCH ×7 (00:26→11:44)
[2020-07-10] MEDS: LEVETIRACETAM 500 MG in 0.9%NACL 100ML 100 ML IV SCH ×2 (00:28→12:17)
[2020-07-10] MEDS: DEXTROSE 5%-WATER 1,000 ML IV SCH ×3 (03:40→21:08)
[2020-07-10 05:27] LABS: MAGNESIUM 2.3 mg/dL (1.80-2.40); POTASSIUM 3.7 mmol/L (3.5-5.1)
[2020-07-10] MEDS: POTASSIUM CHLORIDE 20MEQ/100ML 100 ML IV PRN (05:40)
[2020-07-10 06:30] LABS: RED BLOOD CELL COUNT(AUTO) 2.57 MIL/uL (4.00-5.50); WHITE BLOOD COUNT (AUTO) 13.7 K/uL (4.8-10.8)
[2020-07-10 06:31] LABS: HEMATOCRIT 23.5 % (36-48); MEAN CORPUSCULAR HEMOGLOBIN 28.8 pg (27.0-33.0); MEAN CORPUSCULAR HGB CONC 31.5 g/dL (32.0-36.0); MEAN CORPUSCULAR VOLUME 91.4 fL (79-99); RED CELL DISTRIBUTION WIDTH 13.7 % (11.0-15.5)
[2020-07-10 06:32] LABS: EOSINOPHILS % (AUTO) 0.4 % (0.0-8.0); MONOCYTES % (AUTO) 4.8 % (3.0-13.0); PLATELET COUNT (AUTO) 120 K/uL (130-400)
[2020-07-10 06:33] LABS: BASOPHILS % (AUTO) 0.1 % (0.0-5.0)
[2020-07-10 06:34] LABS: NUCLEATED RED BLOOD CELLS 0.4 % (0.0-0.19)
[2020-07-10] MEDS: FAMOTIDINE 20MG VIAL IV SCH ×2 (08:38→21:07)
[2020-07-10] MEDS: TIMOLOL MALEATE 0.5% 5 ML BOTTLE OU SCH ×2 (08:38→21:09)
[2020-07-10] MEDS: BRIMONIDINE TARTRATE 0.2% 5 ML BOTTLE OU SCH ×2 (08:38→21:09)
[2020-07-10] MEDS: ENOXAPARIN SODIUM 30 MG/0.3 ML SQ SCH (08:39)
[2020-07-10] MEDS: AMIODARONE 200 MG TABLET PO SCH ×2 (08:41→21:07)
[2020-07-10] MEDS: ASPIRIN 325MG EC TAB PO SCH (08:41)
[2020-07-10] MEDS: METOPROLOL TARTRATE 25 MG TAB PO SCH ×2 (08:44→21:07)
[2020-07-10] MEDS: FOSPHENYTOIN SODIUM 100 MG in 0.9%NACL 50ML 50 ML IJ SCH ×2 (09:04→21:07)
[2020-07-10 10:47] LABS: ABG HCO3 25.2 mmol/L (21.0-28.0); ABG OXYGEN SATURATION 99.5 % (95.0-99.0); ABG PCO2 32 mmHg (32-45)
[2020-07-10] MEDS ORDERED: FUROSEMIDE 20MG VIAL IV SCH (11:00)
[2020-07-10] MEDS: CEFTRIAXONE 1G VIAL IVP SCH ×2 (11:44→23:01)
[2020-07-10] MEDS: FUROSEMIDE 20MG VIAL IV SCH ×2 (11:44→23:02)
[2020-07-10] MEDS: FUROSEMIDE IV SCH (12:18)
[2020-07-10] MEDS: MANNITOL 20% IV SCH (12:18)
[2020-07-10] MEDS ORDERED: ARTIFICAL TEARS SOL 15 ML OU PRN (15:30)
[2020-07-10] MEDS: ATORVASTATIN 40 MG TABLET PO SCH (21:07)
[2020-07-10] MEDS: LATANOPROST 2.5 ML DROPS OU SCH (21:10)
[2020-07-11] VITALS (25 sets, daily range): BP systolic 105–163; BP diastolic 43–76
[2020-07-11] MEDS: INSULIN HUMULIN R 100 UNIT/ML 3ML SQ SCH ×4 (00:13→17:37)
[2020-07-11] MEDS: LEVETIRACETAM 500 MG in 0.9%NACL 100ML 100 ML IV SCH ×2 (00:15→12:38)
[2020-07-11 04:16] LABS: HEMATOCRIT 21.5 % (36-48); MEAN CORPUSCULAR HEMOGLOBIN 29.1 pg (27.0-33.0); MEAN CORPUSCULAR HGB CONC 31.6 g/dL (32.0-36.0); MEAN CORPUSCULAR VOLUME 91.9 fL (79-99); NUCLEATED RED BLOOD CELLS 1.3 % (0.0-0.19); RED BLOOD CELL COUNT(AUTO) 2.34 MIL/uL (4.00-5.50); RED CELL DISTRIBUTION WIDTH 13.7 % (11.0-15.5)
[2020-07-11 04:31] LABS: CREATININE 1.8 mg/dL (0.5-1.5); POTASSIUM 3.3 mmol/L (3.5-5.1)
[2020-07-11] MEDS: POTASSIUM CHLORIDE 20MEQ/100ML 100 ML IV PRN (04:46)
[2020-07-11 04:48] LABS: ABG BASE EXCESS 3.7 mmol/L (-2.0-3.0); ABG HCO3 25.4 mmol/L (21.0-28.0); ABG OXYGEN SATURATION 98.9 % (95.0-99.0); ABG PCO2 30 mmHg (32-45)
[2020-07-11 06:21] LABS: HEMATOCRIT 24.5 % (36-48)
[2020-07-11] MEDS ORDERED: INSULIN GLARGINE 100 UNITS/ML 10 ML VIAL SQ SCH (08:15)
[2020-07-11] MEDS: ASPIRIN 325MG EC TAB PO SCH (08:53)
[2020-07-11] MEDS: METOPROLOL TARTRATE 25 MG TAB PO SCH ×2 (08:53→20:42)
[2020-07-11] MEDS: ENOXAPARIN SODIUM 30 MG/0.3 ML SQ SCH (08:53)
[2020-07-11] MEDS: FAMOTIDINE 20MG VIAL IV SCH ×2 (08:53→20:42)
[2020-07-11] MEDS: AMIODARONE 200 MG TABLET PO SCH ×2 (08:53→20:42)
[2020-07-11] MEDS: TIMOLOL MALEATE 0.5% 5 ML BOTTLE OU SCH ×2 (08:54→20:45)
[2020-07-11] MEDS: BRIMONIDINE TARTRATE 0.2% 5 ML BOTTLE OU SCH ×2 (08:54→20:45)
[2020-07-11] MEDS: FOSPHENYTOIN SODIUM 100 MG in 0.9%NACL 50ML 50 ML IJ SCH ×2 (09:04→20:43)
[2020-07-11] MEDS: FUROSEMIDE 20MG VIAL IV SCH ×2 (12:05→23:04)
[2020-07-11] MEDS: CEFTRIAXONE 1G VIAL IVP SCH ×2 (12:05→23:04)
[2020-07-11] MEDS: FERROUS SULFATE 300 MG/5 ML LIQ UDCUP NG SCH ×2 (12:38→20:43)
[2020-07-11] MEDS: FUROSEMIDE IV SCH (12:41)
[2020-07-11] MEDS: MANNITOL 20% IV SCH (12:41)
[2020-07-11] MEDS: LATANOPROST 2.5 ML DROPS OU SCH (20:44)
[2020-07-11] MEDS: ATORVASTATIN 40 MG TABLET PO SCH (20:44)
[2020-07-12] VITALS (53 sets, daily range): BP systolic 84–277; BP diastolic 40–272
[2020-07-12] MEDS: LEVETIRACETAM 500 MG in 0.9%NACL 100ML 100 ML IV SCH ×3 (00:28→23:16)
[2020-07-12] MEDS: INSULIN HUMULIN R 100 UNIT/ML 3ML SQ SCH ×5 (00:38→23:16)
[2020-07-12 04:58] LABS: BASOPHILS % (AUTO) 0.2 % (0.0-5.0); EOSINOPHILS % (AUTO) 0.8 % (0.0-8.0); HEMATOCRIT 23.7 % (36-48); LYMPHOCYTES % (AUTO) 5.8 % (21.0-51.0); MEAN CORPUSCULAR HEMOGLOBIN 29.5 pg (27.0-33.0); MEAN CORPUSCULAR HGB CONC 31.2 g/dL (32.0-36.0); MEAN CORPUSCULAR VOLUME 94.4 fL (79-99); MONOCYTES % (AUTO) 4.1 % (3.0-13.0); NEUTROPHILS % (AUTO) 87.7 % (40.0-77.0); NUCLEATED RED BLOOD CELLS 0.6 % (0.0-0.19); PLATELET COUNT (AUTO) 208 K/uL (130-400); RED BLOOD CELL COUNT(AUTO) 2.51 MIL/uL (4.00-5.50); RED CELL DISTRIBUTION WIDTH 14.1 % (11.0-15.5); WHITE BLOOD COUNT (AUTO) 15.8 K/uL (4.8-10.8)
[2020-07-12 05:01] LABS: CREATININE 1.6 mg/dL (0.5-1.5); MAGNESIUM 2.1 mg/dL (1.80-2.40); POTASSIUM 3.2 mmol/L (3.5-5.1)
[2020-07-12] MEDS: POTASSIUM CHLORIDE 20MEQ/100ML 100 ML IV PRN ×3 (05:24→14:24)
[2020-07-12] MEDS: ACETAMINOPHEN 325 MG TAB PO PRN (06:01)
[2020-07-12] MEDS: MANNITOL 20% IVP SCH (07:27)
[2020-07-12] MEDS: FUROSEMIDE IVP SCH (07:27)
[2020-07-12] MEDS: FAMOTIDINE 20MG VIAL IV SCH ×2 (08:25→20:27)
[2020-07-12] MEDS: AMIODARONE 200 MG TABLET PO SCH ×2 (08:26→20:27)
[2020-07-12] MEDS: METOPROLOL TARTRATE 25 MG TAB PO SCH ×2 (08:26→20:27)
[2020-07-12] MEDS: ASPIRIN 325MG EC TAB PO SCH (08:26)
[2020-07-12] MEDS: BRIMONIDINE TARTRATE 0.2% 5 ML BOTTLE OU SCH ×2 (08:27→20:28)
[2020-07-12] MEDS: TIMOLOL MALEATE 0.5% 5 ML BOTTLE OU SCH ×2 (08:27→20:28)
[2020-07-12] MEDS: ENOXAPARIN SODIUM 30 MG/0.3 ML SQ SCH (08:28)
[2020-07-12] MEDS: FERROUS SULFATE 300 MG/5 ML LIQ UDCUP NG SCH ×2 (08:29→20:27)
[2020-07-12] MEDS: FOSPHENYTOIN SODIUM 100 MG in 0.9%NACL 50ML 50 ML IJ SCH ×2 (08:30→20:59)
[2020-07-12] MEDS: FUROSEMIDE 20MG VIAL IV SCH ×2 (10:23→23:15)
[2020-07-12] MEDS: CEFTRIAXONE 1G VIAL IVP SCH ×2 (10:23→22:29)
[2020-07-12 12:44] LABS: CREATININE 1.6 mg/dL (0.5-1.5); POTASSIUM 3.9 mmol/L (3.5-5.1)
[2020-07-12 12:49] LABS: ALBUMIN 1.6 g/dL (3.5-5.0); BILIRUBIN,TOTAL 0.4 mg/dL (0.2-1.0); MAGNESIUM 2.2 mg/dL (1.80-2.40); TOTAL PROTEIN, SERUM 5.1 g/dL (6.0-8.3)
[2020-07-12 18:00] LABS: INR 0.92 (0.85-1.15); PROTHROMBIN TIME 9.9 SEC (9.6-11.6)
[2020-07-12] MEDS: ATORVASTATIN 40 MG TABLET PO SCH (20:27)
[2020-07-12] MEDS: LATANOPROST 2.5 ML DROPS OU SCH (20:28)
[2020-07-13] VITALS (24 sets, daily range): BP systolic 100–142; BP diastolic 41–63
[2020-07-13 04:47] LABS: HEMATOCRIT 25.9 % (36-48); MEAN CORPUSCULAR HEMOGLOBIN 29.9 pg (27.0-33.0); MEAN CORPUSCULAR HGB CONC 30.9 g/dL (32.0-36.0); MEAN CORPUSCULAR VOLUME 96.6 fL (79-99); NUCLEATED RED BLOOD CELLS 0.9 % (0.0-0.19); RED BLOOD CELL COUNT(AUTO) 2.68 MIL/uL (4.00-5.50); RED CELL DISTRIBUTION WIDTH 15.5 % (11.0-15.5); WHITE BLOOD COUNT (AUTO) 18.1 K/uL (4.8-10.8)
[2020-07-13 05:39] LABS: ALBUMIN 1.6 g/dL (3.5-5.0); BILIRUBIN,TOTAL 0.6 mg/dL (0.2-1.0); CREATININE 1.4 mg/dL (0.5-1.5); MAGNESIUM 2.2 mg/dL (1.80-2.40); TOTAL PROTEIN, SERUM 5.3 g/dL (6.0-8.3)
[2020-07-13] MEDS: INSULIN HUMULIN R 100 UNIT/ML 3ML SQ SCH ×4 (06:05→18:00)
[2020-07-13 08:28] LABS: ABG BASE EXCESS 4.6 mmol/L (-2.0-3.0); ABG OXYGEN SATURATION 97.1 % (95.0-99.0); ABG PCO2 34 mmHg (32-45)
[2020-07-13] MEDS ORDERED: RENAL DOSE IV PRN (09:00)
[2020-07-13] MEDS ORDERED: PHARMACY COMMUNICATION MISC SCH (09:00)
[2020-07-13] MEDS ORDERED: DEXTROSE 5%-WATER 1,000 ML IV SCH (09:00)
[2020-07-13] MEDS ORDERED: DEXTROSE 5% IV SCH (09:15)
[2020-07-13] MEDS ORDERED: WATER IV SCH (09:15)
[2020-07-13] MEDS ORDERED: CALCIUM GLUC IV SCH (09:15)
[2020-07-13] MEDS: FERROUS SULFATE 300 MG/5 ML LIQ UDCUP NG SCH ×2 (09:18→20:24)
[2020-07-13] MEDS: FOSPHENYTOIN SODIUM 100 MG in 0.9%NACL 50ML 50 ML IJ SCH ×2 (09:19→20:26)
[2020-07-13] MEDS: FAMOTIDINE 20MG VIAL IV SCH ×2 (09:19→20:25)
[2020-07-13] MEDS: TIMOLOL MALEATE 0.5% 5 ML BOTTLE OU SCH ×2 (09:20→20:25)
[2020-07-13] MEDS: BRIMONIDINE TARTRATE 0.2% 5 ML BOTTLE OU SCH ×2 (09:20→20:25)
[2020-07-13] MEDS: METOPROLOL TARTRATE 25 MG TAB PO SCH ×2 (09:22→20:24)
[2020-07-13] MEDS: ASPIRIN 325MG EC TAB PO SCH (09:22)
[2020-07-13] MEDS: FUROSEMIDE 20 MG TABLET PO SCH (09:23)
[2020-07-13] MEDS: ENOXAPARIN SODIUM 30 MG/0.3 ML SQ SCH (09:24)
[2020-07-13] MEDS: AMIODARONE 200 MG TABLET PO SCH ×2 (09:24→20:24)
[2020-07-13] MEDS: CEFTRIAXONE 1G VIAL IVP SCH ×2 (14:33→22:31)
[2020-07-13] MEDS: LEVETIRACETAM 500 MG in 0.9%NACL 100ML 100 ML IV SCH (14:38)
[2020-07-13] MEDS: ATORVASTATIN 40 MG TABLET PO SCH (20:25)
[2020-07-13] MEDS: LATANOPROST 2.5 ML DROPS OU SCH (20:26)
[2020-07-14] VITALS (22 sets, daily range): BP systolic 105–153; BP diastolic 42–69
[2020-07-14] MEDS: LEVETIRACETAM 500 MG in 0.9%NACL 100ML 100 ML IV SCH ×2 (00:28→12:04)
[2020-07-14] MEDS: INSULIN HUMULIN R 100 UNIT/ML 3ML SQ SCH ×4 (00:28→18:02)
[2020-07-14 05:15] LABS: BASOPHILS % (AUTO) 0.1 % (0.0-5.0); HEMATOCRIT 23.6 % (36-48); LYMPHOCYTES % (AUTO) 3.2 % (21.0-51.0); MEAN CORPUSCULAR HEMOGLOBIN 29.5 pg (27.0-33.0); MEAN CORPUSCULAR HGB CONC 30.5 g/dL (32.0-36.0); MEAN CORPUSCULAR VOLUME 96.7 fL (79-99); MONOCYTES % (AUTO) 3.9 % (3.0-13.0); NEUTROPHILS % (AUTO) 91.6 % (40.0-77.0); NUCLEATED RED BLOOD CELLS 0.8 % (0.0-0.19); PLATELET COUNT (AUTO) 336 K/uL (130-400); RED BLOOD CELL COUNT(AUTO) 2.44 MIL/uL (4.00-5.50); RED CELL DISTRIBUTION WIDTH 16.8 % (11.0-15.5); WHITE BLOOD COUNT (AUTO) 22.8 K/uL (4.8-10.8)
[2020-07-14 05:37] LABS: ALBUMIN 1.5 g/dL (3.5-5.0); BILIRUBIN,TOTAL 0.3 mg/dL (0.2-1.0); CREATININE 1.6 mg/dL (0.5-1.5); POTASSIUM 3.6 mmol/L (3.5-5.1); TOTAL PROTEIN, SERUM 4.5 g/dL (6.0-8.3)
[2020-07-14] MEDS ORDERED: VANCOMYCIN PROTOCOL PER PHARMACY IV SCH (08:00)
[2020-07-14] MEDS ORDERED: VANCOMYCIN 1G/250ML KIT 250 ML IV SCH (08:00)
[2020-07-14 09:11] LABS: ABG BASE EXCESS 3.2 mmol/L (-2.0-3.0); ABG HCO3 25.4 mmol/L (21.0-28.0); ABG OXYGEN SATURATION 97.3 % (95.0-99.0); ABG PCO2 32 mmHg (32-45)
[2020-07-14] MEDS: CEFEPIME HCL 1 GM VIAL IVP SCH ×2 (09:23→09:45)
[2020-07-14] MEDS: FAMOTIDINE 20MG VIAL IV SCH ×2 (09:24→21:02)
[2020-07-14] MEDS: AMIODARONE 200 MG TABLET PO SCH ×2 (09:24→21:03)
[2020-07-14] MEDS: FUROSEMIDE 20 MG TABLET PO SCH (09:24)
[2020-07-14] MEDS: METOPROLOL TARTRATE 25 MG TAB PO SCH ×2 (09:25→21:03)
[2020-07-14] MEDS: FERROUS SULFATE 300 MG/5 ML LIQ UDCUP NG SCH ×2 (09:25→21:03)
[2020-07-14] MEDS: ASPIRIN 325MG EC TAB PO SCH (09:25)
[2020-07-14] MEDS: ENOXAPARIN SODIUM 30 MG/0.3 ML SQ SCH (09:26)
[2020-07-14] MEDS: BRIMONIDINE TARTRATE 0.2% 5 ML BOTTLE OU SCH ×2 (09:27→21:04)
[2020-07-14] MEDS: TIMOLOL MALEATE 0.5% 5 ML BOTTLE OU SCH ×2 (09:27→21:04)
[2020-07-14] MEDS: FOSPHENYTOIN SODIUM 100 MG in 0.9%NACL 50ML 50 ML IJ SCH ×2 (09:29→21:22)
[2020-07-14] MEDS: METRONIDAZOLE 500MG/100ML BAG 100 ML IVPB SCH ×2 (15:15→22:44)
[2020-07-14 16:10] LABS: APPEARANCE,URINE Cloudy (CLEAR); BILIRUBIN,URINE Negative (NEGATIVE); COLOR,URINE Yellow (YELLOW); GLUCOSE, URINE (UA) Negative (NEGATIVE); KETONES,URINE Negative (NEGATIVE); LEUKOCYTE ESTERASE ,URINE Trace (NEGATIVE); NITRATE,URINE Negative (NEGATIVE); OCCULT BLOOD,URINE Moderate (NEGATIVE); PROTEIN,URINE POS 1+ mg/dL (NEGATIVE); UROBILINOGEN,URINE 0.2 mg/dL (0.2-1.0)
[2020-07-14 16:20] LABS: BACTERIA,URINE Few /HPF (None Seen); MUCUS,URINE Moderate LPF (None Seen); SQUAMOUS EPITHELIAL CELL,UR Moderate /HPF (0-2); TRANSITIONAL EPI CELLS,URINE Few /HPF (None Seen)
[2020-07-14 16:21] LABS: AMORPHOUS SEDIMENT,UR Few /LPF (None Seen)
[2020-07-14] MEDS: VANCOMYCIN 500MG+NS 100ML 100 ML IV SCH (21:02)
[2020-07-14] MEDS: ATORVASTATIN 40 MG TABLET PO SCH (21:03)
[2020-07-14] MEDS: LATANOPROST 2.5 ML DROPS OU SCH (21:04)
[2020-07-15] VITALS (21 sets, daily range): BP systolic 100–181; BP diastolic 43–77
[2020-07-15] MEDS: LEVETIRACETAM 500 MG in 0.9%NACL 100ML 100 ML IV SCH ×2 (00:15→15:16)
[2020-07-15 04:23] LABS: BASOPHILS % (AUTO) 0.1 % (0.0-5.0); EOSINOPHILS % (AUTO) 0.2 % (0.0-8.0); HEMATOCRIT 23.8 % (36-48); MEAN CORPUSCULAR HEMOGLOBIN 30.3 pg (27.0-33.0); MEAN CORPUSCULAR HGB CONC 30.7 g/dL (32.0-36.0); MEAN CORPUSCULAR VOLUME 98.8 fL (79-99); MONOCYTES % (AUTO) 3.3 % (3.0-13.0); NEUTROPHILS % (AUTO) 92.3 % (40.0-77.0); NUCLEATED RED BLOOD CELLS 0.3 % (0.0-0.19); PLATELET COUNT (AUTO) 334 K/uL (130-400); RED BLOOD CELL COUNT(AUTO) 2.41 MIL/uL (4.00-5.50); RED CELL DISTRIBUTION WIDTH 17.7 % (11.0-15.5); WHITE BLOOD COUNT (AUTO) 21.3 K/uL (4.8-10.8)
[2020-07-15 04:34] LABS: CREATININE 1.4 mg/dL (0.5-1.5); MAGNESIUM 2.4 mg/dL (1.80-2.40); POTASSIUM 3.4 mmol/L (3.5-5.1)
[2020-07-15] MEDS: POTASSIUM CHLORIDE 20MEQ/100ML 100 ML IV PRN (04:57)
[2020-07-15 05:09] LABS: INR 0.95 (0.85-1.15); PROTHROMBIN TIME 10.2 SEC (9.6-11.6)
[2020-07-15 05:11] LABS: PARTIAL THROMBOPLASTIN TIME 24.5 SEC (26.3-35.5)
[2020-07-15] MEDS: INSULIN HUMULIN R 100 UNIT/ML 3ML SQ SCH ×4 (05:20→18:00)
[2020-07-15] MEDS: METRONIDAZOLE 500MG/100ML BAG 100 ML IVPB SCH ×3 (05:56→22:28)
[2020-07-15] MEDS ORDERED: LIDOCAINE PF 100MG/5ML (2%) SYRINGE 5ML ONE (07:12)
[2020-07-15] MEDS ORDERED: MIDAZOLAM HCL 1 MG/ML 2ML VIAL ONE (07:12)
[2020-07-15] MEDS ORDERED: DEXAMETHASONE SOD PHOSPHATE 10MG/ML 1ML VIAL ONE (07:12)
[2020-07-15] MEDS ORDERED: SUCCINYLCHOLINE 200MG/10ML SYR ONE (07:12)
[2020-07-15] MEDS ORDERED: ROCURONIUM 10MG/1ML SYR 10 MG/ML ML ONE ×2 (07:13→08:09)
[2020-07-15] MEDS ORDERED: FENTANYL CITRATE PF 50 MCG/1 ML 2ML VIAL ONE (07:13)
[2020-07-15] MEDS ORDERED: GLYCOPYRROLATE 1 MG/5 ML SYRINGE ONE (07:13)
[2020-07-15] MEDS ORDERED: NEOSTIGMINE 5MG/5ML SYR IV ONE (07:13)
[2020-07-15] MEDS ORDERED: ONDANSETRON 4MG INJ ONE (07:13)
[2020-07-15] MEDS ORDERED: PROPOFOL 10 MG/ML 20ML VIAL IV ONE (07:13)
[2020-07-15] MEDS ORDERED: LIDOCAINE HCL 1% 20 ML VIAL ONE (07:31)
[2020-07-15] MEDS ORDERED: EPINEPHRINE PF 1MG AMP ONE (07:31)
[2020-07-15] MEDS: CEFEPIME HCL 1 GM VIAL IVP SCH ×3 (07:45→20:17)
[2020-07-15] MEDS: ENOXAPARIN SODIUM 30 MG/0.3 ML SQ SCH (09:00)
[2020-07-15] MEDS: AMIODARONE 200 MG TABLET PO SCH ×2 (11:15→20:19)
[2020-07-15] MEDS: METOPROLOL TARTRATE 25 MG TAB PO SCH ×2 (11:16→20:18)
[2020-07-15] MEDS: ASPIRIN 325MG EC TAB PO SCH (11:16)
[2020-07-15] MEDS: FERROUS SULFATE 300 MG/5 ML LIQ UDCUP NG SCH ×2 (11:16→20:18)
[2020-07-15] MEDS: TIMOLOL MALEATE 0.5% 5 ML BOTTLE OU SCH ×2 (11:18→20:19)
[2020-07-15] MEDS: BRIMONIDINE TARTRATE 0.2% 5 ML BOTTLE OU SCH ×2 (11:18→20:19)
[2020-07-15] MEDS: FAMOTIDINE 20MG VIAL IV SCH ×2 (11:19→20:18)
[2020-07-15] MEDS: VANCOMYCIN 500MG+NS 100ML 100 ML IV SCH ×2 (11:19→20:18)
[2020-07-15] MEDS: FOSPHENYTOIN SODIUM 100 MG in 0.9%NACL 50ML 50 ML IJ SCH ×2 (11:20→20:17)
[2020-07-15] MEDS: ATORVASTATIN 40 MG TABLET PO SCH (20:18)
[2020-07-15] MEDS: LATANOPROST 2.5 ML DROPS OU SCH (20:19)
[2020-07-16] VITALS (22 sets, daily range): BP systolic 105–146; BP diastolic 48–68
[2020-07-16] MEDS: LEVETIRACETAM 500 MG in 0.9%NACL 100ML 100 ML IV SCH ×3 (00:10→23:18)
[2020-07-16] MEDS: INSULIN HUMULIN R 100 UNIT/ML 3ML SQ SCH ×5 (00:14→23:17)
[2020-07-16 03:42] LABS: HEMATOCRIT 23.7 % (36-48); MEAN CORPUSCULAR HEMOGLOBIN 31.1 pg (27.0-33.0); MEAN CORPUSCULAR HGB CONC 30.8 g/dL (32.0-36.0); MEAN CORPUSCULAR VOLUME 100.9 fL (79-99); NUCLEATED RED BLOOD CELLS 0.5 % (0.0-0.19); RED BLOOD CELL COUNT(AUTO) 2.35 MIL/uL (4.00-5.50); RED CELL DISTRIBUTION WIDTH 19.5 % (11.0-15.5); WHITE BLOOD COUNT (AUTO) 17.3 K/uL (4.8-10.8)
[2020-07-16 03:51] LABS: CREATININE 1.3 mg/dL (0.5-1.5); POTASSIUM 3.4 mmol/L (3.5-5.1)
[2020-07-16] MEDS: POTASSIUM CHLORIDE 20MEQ/100ML 100 ML IV PRN (04:11)
[2020-07-16] MEDS: METRONIDAZOLE 500MG/100ML BAG 100 ML IVPB SCH ×3 (05:58→22:04)
[2020-07-16 08:16] LABS: ABG BASE EXCESS -1.5 mmol/L (-2.0-3.0); ABG HCO3 21.5 mmol/L (21.0-28.0); ABG OXYGEN SATURATION 96.7 % (95.0-99.0); ABG PCO2 32 mmHg (32-45)
[2020-07-16] MEDS: CEFEPIME HCL 1 GM VIAL IVP SCH ×2 (08:21→20:12)
[2020-07-16] MEDS: ENOXAPARIN SODIUM 30 MG/0.3 ML SQ SCH ×2 (09:00→14:03)
[2020-07-16] MEDS: FERROUS SULFATE 300 MG/5 ML LIQ UDCUP NG SCH ×2 (09:00→20:12)
[2020-07-16] MEDS: AMIODARONE 200 MG TABLET PO SCH ×3 (09:00→20:12)
[2020-07-16] MEDS: ASPIRIN 325MG EC TAB PO SCH ×2 (09:00→14:03)
[2020-07-16] MEDS: METOPROLOL TARTRATE 25 MG TAB PO SCH ×2 (09:00→20:12)
[2020-07-16] MEDS ORDERED: MIDAZOLAM HCL 1 MG/ML 2ML VIAL ONE (09:11)
[2020-07-16] MEDS: BRIMONIDINE TARTRATE 0.2% 5 ML BOTTLE OU SCH ×2 (09:39→20:13)
[2020-07-16] MEDS: TIMOLOL MALEATE 0.5% 5 ML BOTTLE OU SCH ×2 (09:39→20:13)
[2020-07-16] MEDS: FAMOTIDINE 20MG VIAL IV SCH ×2 (09:43→20:12)
[2020-07-16] MEDS: FOSPHENYTOIN SODIUM 100 MG in 0.9%NACL 50ML 50 ML IJ SCH ×2 (09:44→20:16)
[2020-07-16] MEDS: VANCOMYCIN 500MG+NS 100ML 100 ML IV SCH ×2 (11:50→20:46)
[2020-07-16] MEDS: ATORVASTATIN 40 MG TABLET PO SCH (20:12)
[2020-07-16] MEDS: LATANOPROST 2.5 ML DROPS OU SCH (20:12)
[2020-07-16] MEDS: 0.9%NACL 10ML VIAL IVP PRN (20:12)
[2020-07-17] VITALS (21 sets, daily range): BP systolic 100–156; BP diastolic 41–65
[2020-07-17 03:46] LABS: HEMATOCRIT 24.8 % (36-48); MEAN CORPUSCULAR HEMOGLOBIN 29.8 pg (27.0-33.0); MEAN CORPUSCULAR VOLUME 102.5 fL (79-99); NUCLEATED RED BLOOD CELLS 0.4 % (0.0-0.19); RED BLOOD CELL COUNT(AUTO) 2.42 MIL/uL (4.00-5.50); RED CELL DISTRIBUTION WIDTH 21.5 % (11.0-15.5); WHITE BLOOD COUNT (AUTO) 18.9 K/uL (4.8-10.8)
[2020-07-17 04:06] LABS: CREATININE 1.5 mg/dL (0.5-1.5); POTASSIUM 3.3 mmol/L (3.5-5.1)
[2020-07-17] MEDS: POTASSIUM CHLORIDE 20MEQ/100ML 100 ML IV PRN (04:17)
[2020-07-17 04:39] LABS: ABG BASE EXCESS -1.5 mmol/L (-2.0-3.0); ABG HCO3 19.9 mmol/L (21.0-28.0); ABG OXYGEN SATURATION 97.5 % (95.0-99.0); ABG PCO2 26 mmHg (32-45)
[2020-07-17] MEDS: INSULIN HUMULIN R 100 UNIT/ML 3ML SQ SCH ×3 (05:31→17:43)
[2020-07-17] MEDS: METRONIDAZOLE 500MG/100ML BAG 100 ML IVPB SCH ×3 (05:35→21:51)
[2020-07-17 06:56] LABS: THYROID STIMULATING HORMONE 1.67 uIU/mL (0.36-3.74)
[2020-07-17] MEDS: CEFEPIME HCL 1 GM VIAL IVP SCH ×2 (08:42→20:40)
[2020-07-17] MEDS: FOSPHENYTOIN SODIUM 100 MG in 0.9%NACL 50ML 50 ML IJ SCH ×2 (08:42→20:41)
[2020-07-17] MEDS: FAMOTIDINE 20MG VIAL IV SCH ×2 (08:42→20:40)
[2020-07-17] MEDS: FERROUS SULFATE 300 MG/5 ML LIQ UDCUP NG SCH ×2 (08:44→20:40)
[2020-07-17] MEDS: AMIODARONE 200 MG TABLET PO SCH ×2 (08:44→20:40)
[2020-07-17] MEDS: ASPIRIN 325MG EC TAB PO SCH (08:44)
[2020-07-17] MEDS: METOPROLOL TARTRATE 25 MG TAB PO SCH ×2 (08:44→20:40)
[2020-07-17] MEDS: VANCOMYCIN 500MG+NS 100ML 100 ML IV SCH ×2 (08:44→20:42)
[2020-07-17] MEDS: ENOXAPARIN SODIUM 30 MG/0.3 ML SQ SCH (08:45)
[2020-07-17] MEDS: BRIMONIDINE TARTRATE 0.2% 5 ML BOTTLE OU SCH ×2 (08:47→20:42)
[2020-07-17] MEDS: TIMOLOL MALEATE 0.5% 5 ML BOTTLE OU SCH ×2 (08:47→20:43)
[2020-07-17 08:57] LABS: ABG HCO3 22.7 mmol/L (21.0-28.0); ABG OXYGEN SATURATION 97.7 % (95.0-99.0); ABG PCO2 32 mmHg (32-45)
[2020-07-17] MEDS ORDERED: INSULIN GLARGINE 100 UNITS/ML 10 ML VIAL SQ SCH ×2 (09:00→10:00)
[2020-07-17] MEDS: DEXTROSE 5%-WATER 1,000 ML IV SCH (11:40)
[2020-07-17] MEDS: LEVETIRACETAM 500 MG in 0.9%NACL 100ML 100 ML IV SCH (11:40)
[2020-07-17] MEDS: 0.9%NACL 10ML VIAL IVP PRN (20:40)
[2020-07-17] MEDS: ATORVASTATIN 40 MG TABLET PO SCH (20:41)
[2020-07-17] MEDS: LATANOPROST 2.5 ML DROPS OU SCH (20:43)
[2020-07-18] VITALS (18 sets, daily range): BP systolic 117–156; BP diastolic 49–67
[2020-07-18] MEDS: INSULIN HUMULIN R 100 UNIT/ML 3ML SQ SCH ×4 (00:04→18:00)
[2020-07-18] MEDS: LEVETIRACETAM 500 MG in 0.9%NACL 100ML 100 ML IV SCH ×2 (00:05→12:01)
[2020-07-18] MEDS: DEXTROSE 5%-WATER 1,000 ML IV SCH (00:05)
[2020-07-18] MEDS: METRONIDAZOLE 500MG/100ML BAG 100 ML IVPB SCH ×2 (05:44→16:14)
[2020-07-18 08:26] LABS: CREATININE 1.4 mg/dL (0.5-1.5); POTASSIUM 3.3 mmol/L (3.5-5.1)
[2020-07-18] MEDS ORDERED: INSULIN GLARGINE 100 UNITS/ML 10 ML VIAL SQ SCH (09:00)
[2020-07-18] MEDS: CEFEPIME HCL 1 GM VIAL IVP SCH (09:28)
[2020-07-18] MEDS: FERROUS SULFATE 300 MG/5 ML LIQ UDCUP NG SCH (09:29)
[2020-07-18] MEDS: FAMOTIDINE 20MG VIAL IV SCH (09:29)
[2020-07-18] MEDS: METOPROLOL TARTRATE 25 MG TAB PO SCH (09:29)
[2020-07-18] MEDS: FOSPHENYTOIN SODIUM 100 MG in 0.9%NACL 50ML 50 ML IJ SCH (09:29)
[2020-07-18] MEDS: ASPIRIN 325MG EC TAB PO SCH (09:29)
[2020-07-18] MEDS: AMIODARONE 200 MG TABLET PO SCH (09:30)
[2020-07-18] MEDS: ENOXAPARIN SODIUM 30 MG/0.3 ML SQ SCH (09:35)
[2020-07-18] MEDS: TIMOLOL MALEATE 0.5% 5 ML BOTTLE OU SCH (09:36)
[2020-07-18] MEDS: BRIMONIDINE TARTRATE 0.2% 5 ML BOTTLE OU SCH (09:38)
[2020-07-18] MEDS: POTASSIUM CHLORIDE 20MEQ/100ML 100 ML IV PRN (10:35)
== END 2020-07-18 18:50 | DRG 3 ==
LOC: EDH 16:30 → EDHIP 19:43 → 2CH 07-04 14:27
PROVIDERS: ADMIT Internal Medicine; ATTEND Internal Medicine
PROC: 06BP4ZZ Excision of Right Saphenous Vein, Percutaneous Endoscopic Approach (ICD-10-PCS; 2020-07-04)
PROC: 5A02210 Assistance with Cardiac Output using Balloon Pump, Continuous (ICD-10-PCS; 2020-07-04)
PROC: 5A1221Z Performance of Cardiac Output, Continuous (ICD-10-PCS; 2020-07-04)
PROC: 4A023N7 Measurement of Cardiac Sampling and Pressure, Left Heart, Percutaneous Approach (ICD-10-PCS; 2020-07-04)
PROC: B2111ZZ Fluoroscopy of Multiple Coronary Arteries using Low Osmolar Contrast (ICD-10-PCS; 2020-07-04)
PROC: 30233R1 Transfusion of Nonautologous Platelets into Peripheral Vein, Percutaneous Approach (ICD-10-PCS; 2020-07-04)
PROC: 30233N1 Transfusion of Nonautologous Red Blood Cells into Peripheral Vein, Percutaneous Approach (ICD-10-PCS; 2020-07-04)
PROC: 0BH17EZ Insertion of Endotracheal Airway into Trachea, Via Natural or Artificial Opening (ICD-10-PCS; 2020-07-04)
PROC: 02HV33Z Insertion of Infusion Device into Superior Vena Cava, Percutaneous Approach (ICD-10-PCS; 2020-07-04)
PROC: B548ZZA Ultrasonography of Superior Vena Cava, Guidance (ICD-10-PCS; 2020-07-04)
PROC: 02100Z9 Bypass Coronary Artery, One Artery from Left Internal Mammary, Open Approach (ICD-10-PCS; principal; 2020-07-04 13:00)
PROC: 5A1955Z Respiratory Ventilation, Greater than 96 Consecutive Hours (ICD-10-PCS; 2020-07-04 13:00)
PROC: 021109W Bypass Coronary Artery, Two Arteries from Aorta with Autologous Venous Tissue, Open Approach (ICD-10-PCS; 2020-07-04 13:00)
PROC: 5A12012 Performance of Cardiac Output, Single, Manual (ICD-10-PCS; 2020-07-05)
PROC: 0B110F4 Bypass Trachea to Cutaneous with Tracheostomy Device, Open Approach (ICD-10-PCS; 2020-07-15)
PROC: 0DH63UZ Insertion of Feeding Device into Stomach, Percutaneous Approach (ICD-10-PCS; 2020-07-16)
DX: I21.4 Non-ST elevation (NSTEMI) myocardial infarction (principal); I49.01 Ventricular fibrillation; G93.6 Cerebral edema; I63.40 Cerebral infarction due to embolism of unspecified cerebral artery; I50.23 Acute on chronic systolic (congestive) heart failure; J15.9 Unspecified bacterial pneumonia; J95.821 Acute postprocedural respiratory failure; J95.1 Acute pulmonary insufficiency following thoracic surgery; I97.790 Other intraoperative cardiac functional disturbances during cardiac surgery; E87.0 Hyperosmolality and hypernatremia; I13.0 Hypertensive heart and chronic kidney disease with heart failure and stage 1 through stage 4 chronic kidney disease, or unspecified chronic kidney disease; E46 Unspecified protein-calorie malnutrition; E87.3 Alkalosis; G81.94 Hemiplegia, unspecified affecting left nondominant side; G93.1 Anoxic brain damage, not elsewhere classified; N17.9 Acute kidney failure, unspecified; Z99.11 Dependence on respirator [ventilator] status; I97.710 Intraoperative cardiac arrest during cardiac surgery; N99.0 Postprocedural (acute) (chronic) kidney failure; I25.10 Atherosclerotic heart disease of native coronary artery without angina pectoris; Z90.11 Acquired absence of right breast and nipple; I25.5 Ischemic cardiomyopathy; E11.22 Type 2 diabetes mellitus with diabetic chronic kidney disease; E11.65 Type 2 diabetes mellitus with hyperglycemia; E78.5 Hyperlipidemia, unspecified; D64.9 Anemia, unspecified; E66.01 Morbid (severe) obesity due to excess calories; E77.8 Other disorders of glycoprotein metabolism; E78.00 Pure hypercholesterolemia, unspecified; E87.6 Hypokalemia; E87.8 Other disorders of electrolyte and fluid balance, not elsewhere classified; I48.0 Paroxysmal atrial fibrillation; I65.21 Occlusion and stenosis of right carotid artery; K44.9 Diaphragmatic hernia without obstruction or gangrene; N18.9 Chronic kidney disease, unspecified; R13.12 Dysphagia, oropharyngeal phase; K29.50 Unspecified chronic gastritis without bleeding; R56.9 Unspecified convulsions; T38.0X5A Adverse effect of glucocorticoids and synthetic analogues, initial encounter; Y95 Nosocomial condition; Z20.822 Contact with and (suspected) exposure to COVID-19; Z79.899 Other long term (current) drug therapy; Z85.3 Personal history of malignant neoplasm of breast; Z90.5 Acquired absence of kidney; Z82.3 Family history of stroke; Z83.3 Family history of diabetes mellitus; Z82.49 Family history of ischemic heart disease and other diseases of the circulatory system; Z79.84 Long term (current) use of oral hypoglycemic drugs; R29.722 NIHSS score 22; Y83.8 Other surgical procedures as the cause of abnormal reaction of the patient, or of later complication, without mention of misadventure at the time of the procedure; Z68.35 Body mass index [BMI] 35.0-35.9, adult; Y92.239 Unspecified place in hospital as the place of occurrence of the external cause
CPT/HCPCS: 33967; 36415; 36600; 43246; 70450; 71045; 74176; 76770; 80048; 80053; 80061; 80202; 81001; 82150; 82330; 82435; 82550; 82803; 82947; 82948; 83036; 83605; 83690; 83735; 83874; 83880; 84100; 84132; 84145; 84295; 84439; 84443; 84481; 84484; 85014; 85018; 85025; 85027; 85347; 85384; 85610; 85730; 86850; 86900; 86901; 86923; 87040; 87088; 93005; 93306; 93454; 93880; 94002; 94003; 99152; 99156; 99157; A7048; C1751; C1894; G0378; J0171; J0282; J0330; J0456; J0610; J0690; J0692; J0696; J1100; J1644; J1650; J1815; J1940; J1953; J2001; J2060; J2150; J2250; J2370; J2405; J2440; J2704; J2710; J2720; J3010; J3370; J3475; J3480; J3490; J7030; J7040; J7050; J7060; J7070; J7120; P9016; P9034; P9045; P9047; Q2009; Q9967